=== PATIENT | female | born 1950 | race Two or more races ===

== ENCOUNTER 2019-10-19 18:19 | Inpatient (IN) | payer OTHER ==
[~2019-10-19] VITALS: Ht 157.5 cm; Wt 60.1 kg
--- NOTE | 2019-10-19 20:14 | NUR ---
PT. ARRIVED FROM HOME, STATING SHE WAS CALLED BY HER PCP, STATING SHE NEEDED TO COME TO THE ER, STATES SHE WAS JUST TOLD THAT SHE HAS RENAL FAILURE & HISTORY OF ANENMIA, PT. AAOX4, SITTING UP UP IN BED, CALM, NO ACUTE DISTRESS NOTED, DENIES ANY SYMPTOMS, FACIAL DROOP NOTED ON RIGHT SIDE OF FACE, PER PT STATES SHE HAS HAD IT FOR MONTHS, DENIES ANY HX OF STROKE, PT WAS ABLE TO AMBULATE TO THE RESTROOM WITH STEADY GAIT AND NO DIFFICULTY, PRINCESS ALVAREZ AT BEDSIDE, PLACED ON CM, SAFETY PRECAUTIONS IN PLACE, WILL MONITOR.
[2019-10-19 20:19] LABS: BASOPHIL % 2.3 % (0-2); PLATELET COUNT 569 x10^3mcL (130-400); RED CELL DISTRIBUTION WIDTH 18.5 % (11.5-14.5)
[2019-10-19 20:25] LABS: ALBUMIN 2.5 g/dL (3.4-5.0); CARBON DIOXIDE 22.4 mmol/L (21-32); CREATININE SERUM 2.6 mg/dL (0.6-1.0); TOTAL PROTEIN, SERUM 7.4 g/dL (6.4-8.2)
[2019-10-19 20:26] LABS: BILIRUBIN TOTAL 0.2 mg/dL (0.20-1.00); CALCIUM 8.6 mg/dL (8.5-10.1)
[2019-10-19 20:41] LABS: UA SPECIFIC GRAVITY 1.015 (1.005-1.035); microscopic required? YES; urine erythrocyte TRACE (NEGATIVE)
--- NOTE | 2019-10-19 20:44 | NUR ---
DR. ARREDONDO AT BEDSIDE WITH RECTAL EXAM, PT. TOLERATED WELL, NEGATIVE RESULTS
--- NOTE | 2019-10-19 21:46 | NUR ---
PT. STATES THAT SHE FELL YESTERDAY, SHE WAS WALKING TO HER SON'S ROOM, AND FELL, STATES SHE DOES NOT KNOW, DENIES LOSING CONSCIOUSNESS, DENIES ANY HEAD TRAUMA, MADE AWARE
[2019-10-19] MEDS ORDERED: ASPIR 8181 MG PO (21:49)
[2019-10-19] MEDS ORDERED: MOT800 PO (21:50)
[2019-10-19] MEDS ORDERED: ATORVASTATIN CA10 M1 PO (21:50)
[2019-10-19] MEDS ORDERED: HORIZANT600 M1 PO (21:52)
--- NOTE | 2019-10-19 22:12 | NUR ---
REPORT CALLED TO MAHESH WALLACE TELE,
--- NOTE | 2019-10-19 22:28 | NUR ---
[facility]OD [facility]ALLY READY, BUT NOT READY FOR TRAINING ANALYST, ANDRES WALLACE MADE AWARE, WILL NOT START BLOOD IN ER,
--- NOTE | 2019-10-19 22:43 | NUR ---
RECEIVED PT FROM ED VIA [employer], CAME IN DUE TO SYNCOPE AND DIZZINESS. AAOX4. C/O MILD DIZZINESS. ABLE TO FOLLOW COMMANDS. HAND BILLIARD TABLE MECHANIC ARE EQUAL. NOTED RIGHT EYE DROOP, W/ RIGHT EYE BLURRY VISION. SPEECH IS CLEAR. NO SOB NOTED, LUNG SOUNDS CTA. DENIES CHEST PAIN/PRESSURE, SR W/ ELEVATED T AND OCC. PVC'S. DENIES ABDOMINAL DISCOMFORT, LAST BM TODAY, FORMED. VOIDS FREELY. IV SITE ON THE RIGHT WRIST IS PATENT AND INTACT. SIDE RAILS UPX2. CALL LIGHT ON REACH. ENDORSED TO PRIMARY NURSE ANDRES FOR CONTINUITY OF CARE
--- NOTE | 2019-10-19 22:50 | NUR ---
PT RECEIVED A/O X4, ABLE TO MAKE NEEDS KNOWN. TELE #5, DENIES CP/PRESSURE. PULSES PALPABLE, NO EDEMA PRESENT. BREATHING IS EVEN AND UNLABORED ON RA, NO RESP DISTRESS NOTED. ABD SOFT AND ROUND, DENIES N/V. VOIDS FREELY, BRP. AMBULATORY WITH STEADY GAIT, PT USES CANE/WALKER AT BASELINE. PT RICHAR ANY PAIN AT THIS TIME. IV TO RW INTACT. ORIENTED PT TO ROOM AND CALL LIGHT. NO ACUTE DISTRESS NOTED. BED IN LOWEST SETTING, SIDE RAILS UP X2, CALL LIGHT WITHIN REACH. WILL CONT TO MONITOR.
[2019-10-19 23:09] VITALS: BP 133/72
[2019-10-19 23:11] VITALS: Ht 157.5 cm; Wt 60.1 kg
--- NOTE | 2019-10-19 23:56 | NUR ---
BLOOD TRANSFUSION INITIATED AND VERIFIED WITH SECONDARY NURSE, MAHESH WALLACE. PRE VS: 98.0, 81, 135/70, 18, 99% ON RA. EDUCATED PT ON S/S OF ADVERSE REACTION, PT VERBALIZES UNDERSTANDING. WILL CONT TO MONITOR.
--- NOTE | 2019-10-20 02:45 | NUR ---
BLOOD TRANSFUSION COMPLETED. VSS: 98.3, 74, 107/54, 18, 96%. PT DENIES HAVING ANY S/S OF ADVERSE REACTION. NO ACUTE DISTRESS NOTED. WILL CONT TO MONITOR.
--- NOTE | 2019-10-20 03:25 | NUR ---
SECOND UNIT OF BLOOD TRANSFUSION INITIATED. VS: 98.3, 83, 104/62, 18, 97%. REINFORCED TEACHING OF S/S OF ADVERSE REACTIONS, PT VERBALIZES UNDERSTANDING. NO ACUTE DISTRESS NOTED. WILL CONT TO MONITOR.
--- NOTE | 2019-10-20 06:35 | NUR ---
SECOND UNIT OF BLOOD TRANSFUSION COMPLETED. VSS: 98.7, 78, 101/50, 18, 98%. PT DENIES HAVING ANY S/S OF AN ADVERSE REACTION. NO ACUTE DISTRESS NOTED. WILL CONT TO MONITOR.
--- NOTE | 2019-10-20 06:58 | NUR ---
PT SLEPT WELL THROUGHOUT THE EVENING. BREATHING IS EVEN AND UNLABORED, NO RESP DISTRESS NOTED. PT DENIES HAVING ANY PAIN AT THIS TIME. IV TO RW INTACT. PT TOLERATE TWO UNITS OF PRBCs WELL WITH NO ADVERSE REACTION. NO ACUTE CHANGES ENCOUNTERED DURING SHIFT. ALL NEEDS MET AND ANTICIPATED. CALL LIGHT WITHIN REACH. WILL ENDORSE CARE TO AM NURSE.
--- NOTE | 2019-10-20 07:30 | NUR ---
PT IS AAOX4. LUNG SOUNDS CTA. ON R/A. TELE [address] READING NST WITH PVC. PT DENIES C/P, AND PRESSURE. IV CATH TO RW PATENT, SITE WNL. COVERD WITH CDI DRESSING. NO S/S OF INFECTION OR INFILTRATION AT SITE. PT DENIES PAIN AT THIS TIME. CALL LIGHT WITHIN REACH. BED IN LOWEST POSITION. WILL CONTINUE TO MONITOR.
[2019-10-20 08:12] LABS: BASOPHIL % 1.9 % (0-2)
--- NOTE | 2019-10-20 08:12 | NUR ---
PT RECEIVING U/S RENAL, KIDNEY WITH BLADDER AT THIS TIME.
[2019-10-20 08:19] LABS: PLATELET COUNT 445 x10^3mcL (130-400); RED CELL DISTRIBUTION WIDTH 15.8 % (11.5-14.5)
[2019-10-20 08:29] VITALS: BP 114/55
[2019-10-20 08:47] LABS: CALCIUM 8.2 mg/dL (8.5-10.1); CARBON DIOXIDE 21.6 mmol/L (21-32); CREATININE SERUM 2.4 mg/dL (0.6-1.0); MAGNESIUM 1.8 mg/dL (1.8-2.4)
--- NOTE | 2019-10-20 08:56 | NUR ---
RECEIVED ORDER FROM DR. ADDISON CONTINUE HOME MED NEURONTIN PO. ORDER NOTED AND CARRIED OUT. PT MADE AWARE.
--- NOTE | 2019-10-20 09:16 | NUR ---
SCHEDULED MEDS GIVEN AND TOLERATED WELL WITH WATER. NO S/S OF COUGH OR SOB. RESP EVEN AND UNLABORED. DENIES PAIN AT THIS TIME. CALL LIGHT WITHIN REACH.
--- NOTE | 2019-10-20 10:16 | NUR ---
NEURONTIN PO GIVEN LATE, DRUG JUST RECONCILED AND VERIFIED. 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 PT STATE BACK PAIN IS 4/1O AT THIS TIME. PT REPOSTIONED FOR COMFORT. CALL LIGHT WITHIN REACH.
[2019-10-20 12:10] VITALS: BP 126/71
--- NOTE | 2019-10-20 14:33 | NUR ---
TYLENOL PO GIVEN FOR H/A 01/12. EXTRA FLUIDS GIVEN. LIGHTS IN ROOM DIMMED. CALL LIGHT WITHIN REACH. WILL CONTINUE TO MONITOR.
[2019-10-20 15:54] VITALS: BP 111/61
--- NOTE | 2019-10-20 15:54 | NUR ---
RECEIVED ORDER FROM DR. ADDISON, PLEASE ADD CONSULTS FOR PT, DR. ZION BEGUM, AND DR. DOMINIK AVILA. ORDER NOTED AND CARRIED OUT. PT MADE AWARE.
--- NOTE | 2019-10-20 18:18 | NUR ---
PT IS AAOX4. RESP EVEN AND UNLABORED. NO DISTRESS NOTED. IV CATH TO RW PATENT, NS LOCKED. SITE WNL. PT DENIES PAIN AND DISCOMFORT. CALL LIGHT WITHIN REACH. WILL ENDORSE ALL CARE TO NOC RN. BED IN LOWEST POSITION.
--- NOTE | 2019-10-20 19:05 | NUR ---
PT RECIEVED A/O X4, ABLE TO MAKE NEEDS KNOWN. TELE #5, PT DENIES ANY CP/PRESSURE. PULSES PALPABLE, NO EDEMA PRESENT. BREATHING IS EVEN AND UNLABORED ON RA, NO RESP DISTRESS NOTED. ABD SOFT AND ROUND, DENIES N/V. VOIDS FREELY, BRP. MILD GENERALIZED WEAKNESS, AMBULATORY WITH STEADY GAIT. PT DENIES HAVING ANY PAIN AT THIS TIME. IV TO RW, PATENT AND INTACT, SITE FREE FROM REDNESS OR SWELLING. NO ACUTE DISTRESS OBSERVED. BED IN LOWEST SETTING, SIDE RAILS UP X2, CALL LIGHT WITHIN REACH. WILL CONT TO MONITOR.
[2019-10-20 20:39] VITALS: BP 113/61
--- NOTE | 2019-10-21 00:40 | NUR ---
PT RESTING IN BED WITH EYES CLOSED, BUT IS EASILY AROUSABLE. BREATHING IS EVEN AND UNLABORED, NO RESP DISTRESS NOTED. PT C/O 05/14 HEADACHE PAIN, PRN TYLENOL GIVEN PER EMAR. PT DENIES HAVING ANY ALLERGY TO ACETAMINOPHEN STATES SHE HAS TAKEN TYLENOL BEFORE. NO ACUTE DISTRESS NOTED. IV INTACT. CALL LIGHT WITHIN REACH. WILL CONT TO MONITOR.
[2019-10-21 05:42] VITALS: BP 104/53
--- NOTE | 2019-10-21 05:43 | NUR ---
PT SLEPT WELL THROUGHOUT THE EVENING. BREATHING IS EVEN AND UNLABORED, NO RESP DISTRESS NOTED. PT DENIES HAVING ANY PAIN AT THIS TIME, PT REPORTS GOOD HEADACHE RELIEF FROM TYLENOL WITH NO S/S OF ALLERGIC REACTION NOTED. IV TO RW INTACT. NO ACUTE CHANGES ENCOUNTERED DURING SHIFT. ALL NEEDS MET AND ANTICIPATED. CALL LIGHT WITHIN REACH. WILL ENDORSE CARE TO AM NURSE.
--- NOTE | 2019-10-21 07:00 | NUR ---
RECIEVED PT RESTING IN BED WITH NO C/O PAIN OR DISTRESS. A/O X4WITH NO C/O VERONICA OR DIZZINESS AT THSI TIME. TELE#5 CONNECTED TO PT, DENIES ANY CP OR PRESSURE. LUNGS CTAB. RIGHT WRIST IV CDI AND PATENT. SAFETY PRECAUTIONS IN PLACE, CALL LIGHT WITHIN REACH, WILL MONITOR.
[2019-10-21 07:20] LABS: BASOPHIL % 0.6 % (0-2)
[2019-10-21 07:55] LABS: PLATELET COUNT 417 x10^3mcL (130-400); RED CELL DISTRIBUTION WIDTH 16.2 % (11.5-14.5)
[2019-10-21 08:01] LABS: CALCIUM 8.3 mg/dL (8.5-10.1); CARBON DIOXIDE 22.2 mmol/L (21-32); CREATININE SERUM 2.4 mg/dL (0.6-1.0); POTASSIUM SERUM 3.9 mmol/L (3.5-5.1)
[2019-10-21 08:07] VITALS: BP 124/71
[2019-10-21 12:34] VITALS: BP 127/70
--- NOTE | 2019-10-21 13:56 | NUR ---
PT STABLE WITH NO C/O PAIN OR DISTRESS. OB STOOL CULTURE COLLECTED AND GIVEN TO LAB. SAFETY PRECAUTIONS IN PLACE, CALL LIGHT WITHIN REACH, WILL MONITOR.
[2019-10-21 16:34] VITALS: BP 134/59
--- NOTE | 2019-10-21 18:14 | NUR ---
PT RESTING IN BED WITH NO C/O PAIN OR DISTRESS. VS WNL. A/O X4 WITH NO C/O VERONICA OR DIZZINESS AT THIS TIME. TELE#5 CONNECTED TO PT, DENIES ANY CP OR PRESSURE. LUNGS CTAB. LEFT WRIST 24 GUAGE IV CDI AND PATENT. SAFETY PRECAUTIONS IN PLACE, CALL LIGHT WITHIN REACH, WILL ENDORSE CARE TO NIGHT NURSE.
--- NOTE | 2019-10-21 19:10 | NUR ---
REPORT RECEIVED FROM DAY SHIFT RN. PATIENT WAS SEEN RESTING COMFORTABLY IN BED. NO DISTRESS NOTED. BREATHING EVEN AND UNLABORED ON ROOM AIR. NO SOB OR RESP DISTRESS NOTED. DENIES CHEST PAIN/PRESSURE. TELE #5. C/O 04/13 HEADACHE. WILL MEDICATE LATER. DENIES DIZZINESS. COMFORT AND SAFETY MEASURES IN PLACE. BED IS LOCKED AND IN THE LOWEST POSITION. SIDE RAILS UP X2. PATIENT IS AWARE A STOOL SAMPLE IS NEEDED. CALL LIGHT IS WITHIN REACH. WILL CONTINUE TO MONITOR.
--- NOTE | 2019-10-21 19:41 | NUR ---
PRN TYLENOL GIVEN FOR 04/13 HEADACHE. MED EDUCATION GIVEN. WILL CONTINUE TO MONITOR.
[2019-10-21 21:22] VITALS: BP 133/88
--- NOTE | 2019-10-22 00:06 | NUR ---
IN TO HANG FLUIDS. PATIENT EASILY AROUSABLE. DENIES PAIN. BREATHING EVEN AND UNLABORED ON ROOM AIR. NO SOB NOTED. IV FLUIDS INFUSING WELL AT 50 ML/HR. NOTIFIED PATIENT URINE COLLECTION IS NEEDED AND TO CALL WHEN SHE VOIDS. PATIENT VERBALIZED UNDERSTANDING. SAFETY MEASURES IN PLACE. CALL LIGHT WITHIN REACH. WILL CONTINUE TO MONITOR.
--- NOTE | 2019-10-22 04:32 | NUR ---
RESTING IN BED WITH EYES CLOSED. NO DISTRESS NOTED. BREATHING EVEN AND UNLABORED ON ROOM AIR. IVF INFUSING WELL. PATENT AND INTACT. NO S/S OF PAIN NOTED. CALL LIGHT WITHIN REACH. SAFETY MEASURES IN PLACE. WILL CONTINUE TO MONITOR.
[2019-10-22 04:55] VITALS: BP 130/61
--- NOTE | 2019-10-22 05:15 | NUR ---
URINE COLLECTED FOR URINE CR AND NA
--- NOTE | 2019-10-22 06:22 | NUR ---
RESTED IN LONG INTERVALS THROUGHOUT THE NIGHT. NO ACUTE CHANGES NOTED. BREATHING EVEN AND UNLABORED ON ROOM AIR. IV TO THE RW INFUSING WELL. PATENT AND INTACT. NO REDNESS OR SWELLING NOTED. C/O HEADACHE X1. AND MEDICATED WITH TYLENOL WITH GOOD RELIEF. DENIES PAIN AFTER THAT. SAFETY MEASURES IN PLACE. ALL NEEDS AND CONCERNS ADDRESSED. CALL LIGHT IS WITHIN REACH. WILL ENDORSE CARE TO DAY SHIFT RN.
[2019-10-22 07:01] LABS: BASOPHIL % 0.8 % (0-2); PLATELET COUNT 469 x10^3mcL (130-400); RED CELL DISTRIBUTION WIDTH 16.8 % (11.5-14.5)
[2019-10-22 07:24] LABS: CARBON DIOXIDE 23.8 mmol/L (21-32); CREATININE SERUM 2.1 mg/dL (0.6-1.0); TOTAL PROTEIN, SERUM 6.5 g/dL (6.4-8.2)
[2019-10-22 07:25] LABS: ALBUMIN 2.1 g/dL (3.4-5.0); BILIRUBIN DIRECT 0.13 mg/dL (0.0-0.2); BILIRUBIN TOTAL 0.31 mg/dL (0.20-1.00); CALCIUM 8.3 mg/dL (8.5-10.1)
--- NOTE | 2019-10-22 07:30 | NUR ---
RECEIVED PT IN BED. ASSESSED AND DOCUMENTED. DENIES PAIN THIS TIME. STABLE. SAFTEY PRECAUTIONS ARE IN PLACE. WILL MONITOR.
[2019-10-22 08:31] LABS: CREATININE UR 21.9 mg/dL
[2019-10-22 08:37] VITALS: BP 116/54
--- NOTE | 2019-10-22 12:40 | NUR ---
PT SITTING UP IN THE BED, EATING LUNCH. DENIES ANY PAIN, STABLE.
[2019-10-22 12:58] VITALS: BP 118/56
[2019-10-22 13:18] VITALS: BP 118/56
--- NOTE | 2019-10-22 14:40 | NUR ---
DISCHARGE INSTRUCTIONS GIVEN. PB SIGNED AND SENT WITH PT. IV REMOVED AND DRESSING APPLIED. TELE REMOVED AND RETURNED. DENIES ANY PAIN. TECHNICAL MARKETING CONSULTANT WHEELED PT DOWN TO LOBBY ACCOMPANIED WITH PT'S FAMILY. PT DC HOME.
== END 2019-10-22 14:55 | disposition home or self-care (01) | DRG 812 ==
LOC: ED 18:19 → DU 21:29 → MU 21:29 → DU 21:50
PROVIDERS: Emergency Medicine; Internal Medicine; ADMIT Internal Medicine Pulmonary Disease
DX: D50.0 Iron deficiency anemia secondary to blood loss (chronic) (principal); N17.9 Acute kidney failure, unspecified; E44.0 Moderate protein-calorie malnutrition; N18.4 Chronic kidney disease, stage 4 (severe); K92.2 Gastrointestinal hemorrhage, unspecified; T39.395A Adverse effect of other nonsteroidal anti-inflammatory drugs [NSAID], initial encounter; N14.0 Analgesic nephropathy; M54.5 Low back pain; G89.29 Other chronic pain; E78.5 Hyperlipidemia, unspecified; K21.9 Gastro-esophageal reflux disease without esophagitis; Z68.24 Body mass index [BMI] 24.0-24.9, adult
CPT/HCPCS: G0378; J7030; J7050; P9016; Q0092